=== PATIENT | male | born 1960 | race Native Hawaiian/Other Pacific Islander ===

== ENCOUNTER 2019-10-27 18:03 | Outpatient (CLI) | payer BC | END 2019-10-27 20:12 | disposition home or self-care (01) | LOC: LAB 18:03 | DX: R07.89 Other chest pain (principal) | CPT/HCPCS: 84484 ==

== ENCOUNTER 2019-10-29 08:19 | Outpatient (CLI) | payer BC | END 2019-10-29 23:03 | disposition home or self-care (01) | LOC: NM 08:19 | DX: R07.89 Other chest pain (principal); F17.200 Nicotine dependence, unspecified, uncomplicated | CPT/HCPCS: A9500 ==

== ENCOUNTER 2019-11-04 07:50 | Outpatient (CLI) | payer BC | END 2019-11-04 20:17 | disposition home or self-care (01) | LOC: CT 07:50 | DX: F17.200 Nicotine dependence, unspecified, uncomplicated (principal) | CPT/HCPCS: G0297-TC ==

== ENCOUNTER 2020-04-15 09:10 | Outpatient (CLI) | payer BC | END 2020-04-15 18:58 | disposition home or self-care (01) | LOC: CT 09:10 | DX: Z86.711 Personal history of pulmonary embolism (principal) | CPT/HCPCS: 36415; 82565; 84520; Q9963 ==

== ENCOUNTER 2020-04-29 09:29 | Outpatient (CLI) | payer BC | END 2020-04-29 19:39 | disposition home or self-care (01) | LOC: US 09:29 | PROVIDERS: ATTEND Family Medicine | DX: E78.2 Mixed hyperlipidemia (principal) ==